=== PATIENT | female | born 1975 | race Caucasian/White ===

== ENCOUNTER 2021-04-14 07:56 | Outpatient (CLI) | payer OTHER, MEDICARE, SELFPAY ==
--- NOTE | 2021-04-14 08:10 | CT_ITS ---
WS: [id number] CT NECK TECHNIQUE: Contrast-enhanced CT of the neck with coronal and sagittal reformatted images. CLINICAL INFORMATION: DYSPHAGIA, OROPHARYNGEAL PHASE, LOCALIZED SWELLING MASS AND COMPARISON: None. DLP: 998.[address] scans at [facility] use at least one of these dose optimization techniques: automat ed exposure control; mA and/or kV adjustment per patient size (includes targeted exams where dose is matched to clinical indication); or iterative reconstruction. FINDINGS: Normal parapharyngeal fat. Normal palatine tonsils. Parotid glands are normal. Small low-at tenuation lesion right submandibular gland appears cystic measuring 3 mm. Submandibular glands are ot herwise normal. Normal posterior nasopharynx. No evidence of supraglottic or glottic mass. Normal tej lecula and piriform sinuses. Normal subglottic airway. A few prominent submandibular and cervical lymph nodes not pathologically enlarged likely reactive. P artially visualized mastoid air cells well aerated. Paranasal sinuses are only partially visualized b ut appear well aerated. Normal posterior fossa. Straightening of the normal cervical lordosis. Anteri or hypertrophic changes C5-C6 and C6-C7. Somewhat atrophic thyroid tissue for patient this age. No visualized dominant mass or lesion. This ca n be further evaluated with ultrasound for better anatomic detail. Recommend correlation with thyroid function studies and hypothyroidism. Noncalcified groundglass nodule right upper lobe measuring 4.4 mm. Recommend 6 month follow-up chest CT. CT/CT neck w con* [id number] IMPRESSION: 1. No evidence of supraglottic or glottic mass. Normal palatine tonsils. 2. Subglottic airway is normal. 3. A few prominent submandibular and cervical lymph nodes not pathologically e nlarged likely reactive. 4. Tiny right submandibular cystic lesion likely benign measuring 3 mm. 5. Somewhat atrophic thyroid tissue for a patient this age. No visualized thyr oid mass. Recommend correlation with laboratory markers. This can be further ev aluated with ultrasound for better anatomic detail if indicated. 6. Hazy groundglass noncalcified nodule right upper lobe measuring 5 mm. Recom mend 6 month follow-up chest CT.
--- NOTE | 2021-04-14 08:10 | FL_ITS ---
WS: [id number] ESOPHAGRAM TECHNIQUE: Double contrast examination was performed with thin and thick barium. Upright and JEREZ imag es were obtained. CLINICAL INFORMATION: DYSPHAGIA, OROPHARYNGEAL PHASE, LOCALIZED SWELLING MASS COMPARISON: None. FINDINGS: Swallowing: No aspiration or penetration. Esophagus: Moderate esophageal dysmotility. Spasm in the upper thoracic esophagus results in delayed transit of the barium tablet which cleared with additional water. This distends better with additiona l barium with mild underlying tapered narrowing. Prominent reflux is visualized to the thoracic inlet on the supine imaging. Reflux esophagitis in the distal esophagus. Gastroesophageal reflux: Moderate to severe reflux. Small esophageal hiatal hernia. Fluoroscopy time: 3.3 minutes. FL/FL barium swallow [id number] IMPRESSION: 1. Moderate esophageal dysmotility with delayed emptying on the upright imagin g. 2. Delayed transit of the barium tablet in the upper esophagus with esophageal spasm. This corresponds to patient's symptoms. This clears with additional ing estion of water. Mild smooth tapered narrowing in this area in the upper thorac ic esophagus. No high-grade stricture. Esophageal lumen is better distended on the supine imaging. Recommend further evaluation with endoscopy. 3. Moderate to severe esophageal reflux to the thoracic inlet on the supine im aging. Small esophageal hiatal hernia.
[2021-04-14] MEDS: iohexol 300 mg/mL 100 mL Btl IV (08:32)
== END 2021-04-14 07:57 | disposition home or self-care (01) ==
PROVIDERS: Visit Provider Otolaryngology
DX: R13.12 Dysphagia, oropharyngeal phase (principal); R22.1 Localized swelling, mass and lump, neck
CPT/HCPCS: 70491; 74220; Q9967

== ENCOUNTER 2021-09-05 12:24 | Emergency (ER) | payer OTHER, MEDICARE, SELFPAY ==
[2021-09-05 12:27] VITALS: BP 148/87; PULSE 57; RESP 20; TEMP 36.9; O2SAT 98; BMI 37.8
--- NOTE | 2021-09-05 12:57 | ECG_ITS ---
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 Measurements Intervals Assumption Rate: 62 P: 56 WV: 142 QRS: 60 QRSD: 88 T: 63 QT: 420 QTc: 430 Interpretive Statements SINUS RHYTHM No previous ECG available for comparison Electronically Signed On 09-06-2021 5:01:42 BRANCH MECHANIC by Irais Lockhart M.D. [id number]
--- NOTE | 2021-09-05 12:57 | XR_ITS ---
WS: [id number] XR chest 1V portable [id number] REASON FOR EXAM: altered mental status FINDINGS: The heart is not enlarged. Moderate tortuosity of the thoracic aorta without aneurysmal dilatation. Calcified granulomatous disease in both hemithoraces. No active pulmonary parenchymal or pleural disease is noted. Moderate degenerative spondylosis in the mid and lower thoracic spine. XR/XR chest 1V portable [id number] IMPRESSION: No acute chest abnormality.
--- NOTE | 2021-09-05 13:07 | W.ED.PSYCHS ---
HPI - Psych General: Chief Complaint: Psychiatric Symptoms Stated Complaint: ANXIETY, PANIC ATTACK, HALLUCINATIONS Time Seen by Provider: 09/05/21 12:33 Source: patient History of Present Illness: HPI Narrative: 46-year-old female presents emergency department chief complaint of anxiety and hyperactivity this been ongoing for quite some time as well as chronic suicidal thoughts. Patient reports she moved to our area roughly 3 years ago from [facility]. Patient reports that she has been previously seen by her primary care doctor is providing her her lithium. She reports she has a known history of bipolar and schizophrenia anxiety and depression. She reports that she has not establish care with a psychiatrist as of yet. The patient reports that she is unable to stop her mind from thinking reports she has chronic hallucinations she has no current plan reports no other associated symptoms besides history of chronic thyroid issues. Patient reports no drug recent alcohol abuse does report smoking marijuana intermittently. Patient does report to be taking her psychiatric medications that do not seem to help however upon secondary questioning she reports she has not been. MD complaint: feels depressed and altered mental status Onset (ago): week(s) (3) Duration: constant and getting worse History of same: Yes Relieving factors: none Exacerbating factors: none Context: recent drug abuse Associated symptoms: Reports auditory hallucinations, depression and suicidal ideation (Chronic for 3 to 4 years.) Treatments prior to arrival: none If self harm: has plan, has acted on plan, intentional overdose and self-inflicted trauma Review of Systems General: Reports: 10 or more systems reviewed and unremarkable except in HPI and below Const: Denies: fever(s), chills, fatigue or malaise Eyes: Denies: change in vision or blurry vision Card: Denies: chest pain or palpitations Resp: Denies: dyspnea or productive cough GI: Denies: abdominal pain, nausea or vomiting : Denies: flank pain Musc: Denies: extremity pain or extremity swelling Skin/Breast: Denies: rash or pruritus Neuro: Reports: confusion, behavioral changes and restless legs; Denies: headache(s) Psych: Reports: anxiety, depression, mood swings, panic attacks, sleeping less, irritability, auditory hallucinations and suicidal ideation (Chronic for 3 to 4 years.) Won/Lymph: Denies: easy bleeding All/Imm: Denies: urticaria, throat swelling or facial swelling FOR[facility] ED PFSH: Medical History Psychiatric care Physical Exam Narrative: EXAM NARRATIVE: Patient on exam appears somewhat anxious however appears in no obvious acute distress. No observations of any obvious hallucinations appreciated on exam. Const: COMMON NORMALS: no acute distress, patient oriented x3 and healthy appearing HENMT: COMMON NORMALS: normocephalic and atraumatic HEAD & SCALP: normocephalic and atraumatic Eye: COMMON NORMALS: Equal, round and reactive pupils present and EOMs intact bilaterally PUPIL: Yes Equal, round and reactive pupils present Neck/C-Spine: COMMON NORMALS: full ROM, supple and no JVD Lymph: LYMPHATIC: no lymphadenopathy noted Chest: COMMONS NORMALS: normal inspection of the chest and normal palpation of entire chest wall Resp: COMMON NORMALS: normal respiratory effort, No retractions and clear to auscultation bilaterally EFFORT & INSPECTION: Yes able to speak in complete sentences and Yes symmetric chest movement AUSCULTATION: clear to auscultation bilaterally Cardio: COMMON NORMALS: no JVD, regular rate and regular rhythm RATE: regular rate RHYTHM: regular rhythm GI: COMMON NORMALS: Normal to inspection, nondistended, normoactive bowel sounds present, Soft to palpation and non-tender INSPECTION: Yes normal to inspection PALPATION: Yes Soft to palpation : COMMON NORMALS: Yes no CVA tenderness BLADDER/KIDNEY EXAM: Yes no CVA tenderness Back/Pelvis: COMMON NORMALS: no CVA tenderness Extremity: COMMON NORMALS: normal to inspection and full ROM Neuro: COMMON NORMALS: patient oriented x3, CN's II-XII intact bilaterally, moves all extremities and no focal motor deficits Psych: COMMON NORMALS: mental status grossly normal, Normal thought process present, cooperative, normal affect and speech normal ATTITUDE: Yes agitated SPEECH: Yes normal speech and Yes excessive THOUGHT PROCESS: Normal thought process present, disorganized and Loose association thought process present THOUGHT CONTENT: Yes Suicidality present (Chronic over years reports nothing new with no recent plan or attempt) Skin: COMMON NORMALS: no rashes or lesions noted GENERAL SKIN EXAM: no rashes or lesions noted Course Vital Signs: Vital signs: Vital Signs Temperature 98.5 F 09/05/21 12:27 Pulse Rate 65 09/05/21 13:43 Respiratory Rate 17 09/05/21 13:43 Blood Pressure 148/87 09/05/21 13:43 Pulse Oximetry 93 09/05/21 13:43 MDM - Psych MDM Narrative: Medical decision making narrative: Due to the patient's significant age and basic mental health screening exam will be obtained as well as DHEA TSH and free T4 in addition lithium level will be obtained and concern for lithium toxicity possibly could be contributing to current symptoms IV fluids were provided we will continue to follow Lab work came back reassuring normal lithium levels no obvious concerns of for toxicity at this time prior to reevaluation nursing staff reported that the patient was wanting to leave prior to reevaluation. Went in to speak to the patient reports that she is just quite manic in which she is wanting to leave instructed the patient we will be providing her with appropriate referral to [facility]. Patient was notified prior to subsequent discharge that she can follow-up there and walk there if when she is there before 4:00 today she can receive the appropriate intake process packet of information in which she should follow-up thereafter at 0 730 the next morning to make an appointment Case management will also be involved which will further follow-up with her in regards to her [facility] eval. Patient was seen leaving the ER department in no obvious acute distress. Lab Data: Labs: Lab Results 09/05/21 09/05/21 09/05/21 12:50 12:50 13:50 WBC 7.4 10^3/uL 10^3/ uL (4.0-10.0) RBC 4.27 10^6/uL 10^6 /uL (4.1-5.3) Hgb 13.8 g/dL g/dL (11.5-15.3) Hct 43.0 % % (37.0-47.0) MCV 100.7 fl H fl (81-99) MCH 32.3 pg pg (28.0-34.0) MCHC 32.1 g/dL g/dL (30.0-36.0) RDW 12.6 % % (12.1-15.1) Plt Count 284 10^3/cmm 10^3 /cmm (130-400) MPV 10.8 fL H fL (7.4-10.4) Neut % (Auto) 51.2 % % Lymph % (Auto) 32.3 % % [place] % (Auto) 7.7 % % Eos % (Auto) 7.4 % % Baso % (Auto) 1.1 % % Neut # (Auto) 3.81 10^3/uL 10^3 /uL (1.8-7.7) Lymph # (Auto) 2.4 10^3/uL 10^3/ uL (0.8-4.8) [place] # (Auto) 0.6 10^3/uL 10^3/ uL (0.2-0.9) Eos # (Auto) 0.6 10^3/uL 10^3/ uL (0.0-0.8) Baso # (Auto) 0.1 10^3/uL 10^3/ uL (0.0-0.1) Nucleated RBC % (a uto) 0 % % Nucleated RBCs # 0.0 /100WBC /100W BC Sodium Potassium Chloride Carbon Dioxide Anion Gap BUN Creatinine GFR Calculation Glucose Calculated Osmolal ity Calcium Total Bilirubin AST ALT Alkaline Phosphata se Total Protein Albumin Globulin TSH Free T4 Urine Color Yellow (Yellow) Urine Appearance Hazy A (CLEAR) Urine pH 6 (5-7) Ur Specific Gravit y 1.010 (1.005-1.030) Urine Protein Neg (Negative) Urine Glucose (UA) Norm (Normal) Urine Ketones Negative (Negative) Urine Blood Neg (Negative) Urine Nitrate Negative (Negative) Urine Bilirubin Neg (Negative) Urine Urobilinogen Norm mg/dL mg/dL (Negative) Ur Leukocyte [place] Negative (Negative) Urine RBC 0-4 /hpf H /hpf (0-2) Urine WBC 0-4 /hpf H /hpf (0-5) Ur Squamous Epith Cells 25-40 /hpf H /hpf (0-5) Amorphous Sediment Not Reportable Urine Bacteria 2+ /hpf H /hpf (NONE) Salicylates Urine Opiates Scre en Negative ng/mL ng /mL (Negative) Acetaminophen Ur Barbiturates Sc reen Negative ng/mL ng /mL (Negative) Ur Phencyclidine S crn Negative ng/mL ng /mL (Negative) Ur Amphetamines Sc reen Negative ng/mL ng /mL (Negative) U Benzodiazepines Scrn Negative ng/mL ng /mL (Negative) [place] Urine Cocaine Scre en Negative ng/mL ng /mL (Negative) U Marijuana (THC) Screen Negative ng/mL ng /mL (Negative) Ethyl Alcohol 09/05/21 09/05/21 13:50 13:50 WBC RBC Hgb Hct MCV MCH MCHC RDW Plt Count MPV Neut % (Auto) Lymph % (Auto) [place] % (Auto) Eos % (Auto) Baso % (Auto) Neut # (Auto) Lymph # (Auto) [place] # (Auto) Eos # (Auto) Baso # (Auto) Nucleated RBC % (a uto) Nucleated RBCs # Sodium 137 mmol/L mmol/L (136-145) Potassium 4.9 mmol/L mmol/L (3.5-5.1) Chloride 102 mmol/L mmol/L (98-107) Carbon Dioxide 24 mmol/L mmol/L (22-29) Anion Gap 15.9 (5-19) BUN 12 mg/dL mg/dL (6-20) Creatinine 1.1 mg/dL H mg/dL (0.5-0.9) GFR Calculation 53.0 mL/min L mL/ min (90-130) Glucose 100 mg/dL mg/dL (65-115) Calculated Osmolal ity 284 mOsm/kg L mOs m/kg (285-295) Calcium 9.3 mg/dL mg/dL (8.5-10.5) Total Bilirubin 0.3 mg/dL mg/dL (0.15-1.2) AST 19 U/L U/L (0-32) ALT < 5 U/L U/L (0-33) Alkaline Phosphata se 85 IU/L IU/L (35-105) Total Protein 7.1 g/dL g/dL (6.6-8.7) Albumin 4.7 g/dL g/dL (3.5-5.2) Globulin 2.4 g/dL g/dL (1.3-4.6) TSH 9.63 uIU/mL H uIU /mL (0.27-4.20) Free T4 1.00 ng/dL ng/dL (0.82-1.77) Urine Color Urine Appearance Urine pH Ur Specific Gravit y Urine Protein Urine Glucose (UA) Urine Ketones Urine Blood Urine Nitrate Urine Bilirubin Urine Urobilinogen Ur Leukocyte [place] Urine RBC Urine WBC Ur Squamous Epith Cells Amorphous Sediment Urine Bacteria Salicylates < 0.3 mg/dL L mg/ dL (3-10) Urine Opiates Scre en Acetaminophen < 5.0 ug/mL L ug/ mL (10-30) Ur Barbiturates Sc reen Ur Phencyclidine S crn Ur Amphetamines Sc reen U Benzodiazepines Scrn [place] 0.9 mmol/L mmol/L (0.6-1.2) Urine Cocaine Scre en U Marijuana (THC) Screen Ethyl Alcohol < 10 mg/dL mg/dL (0-10) Discharge Plan Discharge Clinical Impression: Chronic schizophrenia, Depression, Anxiety, Bipolar disorder Condition: Stable Prescriptions: No Action quetiapine 150 mg tablet extended release 24 hr 150 mg PO BEDTIME RF: 0 lithium carbonate 600 mg capsule 600 mg PO BEDTIME RF: 0 amitriptyline 25 mg tablet 25 mg PO BEDTIME RF: 0 ibuprofen 800 mg tablet 800 mg PO TID PRN (Reason: Pain) RF: 0 propranolol 10 mg tablet 10 mg PO BID RF: 0 sertraline 100 mg tablet 100 mg PO QAM RF: 0 aspirin 325 mg Tablet 325 mg PO Q4H PRN (Reason: Headache) RF: 0 omeprazole 20 mg capsule,delayed release(DR/EC) 20 mg PO QAM RF: 0 vitamin E 400 unit Capsule 400 unit PO DAILY RF: 0 levothyroxine 137 mcg tablet 137 mcg PO QAM RF: 0 Discharge Orders: Discharge ED (Routine); Ordered 09/05/21 Ordered By: Christian Wilder Activity Restrictions/Additional Instructions: You need to follow-up with [facility] on [address] you can walk there from our facility which is if you get there before 4 PM they will provide you additional information and packet to get you plugged into their system they can also mail the information to you it is advised for tomorrow at least at 0730 for you to follow-up there for a prompt appointment. Case management has been contacted up on your behalf which we will follow-up with you in regards to your [facility] evaluation. If any of your symptoms persist or worse please return the ER immediately for further evaluation management. Coding Level of Care Code ED Skilled Nursing Case Manager for Enzo Mahajan Exam Comprehensive
[2021-09-05 13:40] LABS: Add Urine Microscopic? YES; Bilirubin Urine Neg (Negative); Blood Urine Neg (Negative); Glucose Urine UA Norm (Normal); Ketones Urine Negative (Negative); Leukocyte Esterase Urine Negative (Negative); Nitrate Urine Negative (Negative); Protein Urine Neg (Negative); Urine Appearance Hazy (CLEAR); Urine Color Yellow (Yellow); Urobilinogen Urine Norm (Negative); pH Urine 6 (5-7)
[2021-09-05 13:42] LABS: Amphetamines Screen Urine Negative (Negative); Barbiturates Screen Urine Negative (Negative); Benzodiazepines Screen Urine Negative (Negative); Cocaine Screen Urine Negative (Negative); Opiate Screen Urine Negative (Negative); PCP Screen Urine Negative (Negative); THC Screen Urine Negative (Negative)
[2021-09-05 13:43] VITALS: BP 148/87; PULSE 65; RESP 17; O2SAT 93
[2021-09-05 13:54] LABS: RBC Urine 0-4 /hpf (0-2); WBC Urine 0-4 /hpf (0-5)
[2021-09-05 13:55] LABS: Bacteria Urine 2+ /hpf; Squamous Epithelial Cell Urine 25-40 /hpf (0-5)
[2021-09-05 13:56] LABS: Add Urine Culture? No
[2021-09-05 13:59] LABS: Basophils # 0.1 10^3/uL (0.0-0.1); Basophils % 1.1 %; Eosinophils # 0.6 10^3/uL (0.0-0.8); Eosinophils % 7.4 %; Hemoglobin 13.8 g/dL (11.5-15.3); Lymphocytes # 2.4 10^3/uL (0.8-4.8); Lymphocytes % 32.3 %; Mean Corpuscular HGB Conc 32.1 g/dL (30.0-36.0); Mean Corpuscular Hemoglobin 32.3 pg (28.0-34.0); Mean Corpuscular Volume 100.7 fl (81-99); Mean Platelet Volume 10.8 fL (7.4-10.4); Monocytes # 0.6 10^3/uL (0.2-0.9); Monocytes % 7.7 %; Neutrophils # 3.81 10^3/uL (1.8-7.7); Neutrophils % 51.2 %; Nucleated Red Blood Cells % 0 %; Platelet Count 284 10^3/cmm (130-400); Red Blood Count 4.27 10^6/uL (4.1-5.3); Red Cell Distribution Width 12.6 % (12.1-15.1); White Blood Count 7.4 10^3/uL (4.0-10.0)
[2021-09-05 14:22] LABS: Lithium 0.9 mmol/L (0.6-1.2)
[2021-09-05 14:25] LABS: Alanine Aminotransferase < 5 U/L (0-33); Albumin Level 4.7 g/dL (3.5-5.2); Alkaline Phosphatase 85 IU/L (35-105); Anion Gap 15.9 (5-19); Aspartate Amino Transferase 19 U/L (0-32); Blood Urea Nitrogen 12 mg/dL (6-20); Calcium 9.3 mg/dL (8.5-10.5); Carbon Dioxide 24 mmol/L (22-29); Chloride 102 mmol/L (98-107); Globulin 2.4 g/dL (1.3-4.6); Glucose 100 mg/dL (65-115); Osmolality Calculated 284 mOsm/kg (285-295); Potassium 4.9 mmol/L (3.5-5.1); Sodium 137 mmol/L (136-145); Thyroid Stimulating Hormone 9.63 uIU/mL (0.27-4.20); Total Bilirubin 0.3 mg/dL (0.15-1.2); Total Protein 7.1 g/dL (6.6-8.7)
[2021-09-05 14:26] LABS: Acetaminophen < 5.0 ug/mL (10-30); Alcohol Level < 10 mg/dL (0-10); Salicylate < 0.3 mg/dL (3-10)
[2021-09-05 15:33] VITALS: PULSE 84; RESP 18; O2SAT 95
--- NOTE | 2021-09-12 12:16 | DCPLANNER ---
manager cargo had message to speak with patient about services at [facility]. manager cargo spoke with patient, she stated that she has a follow up appointment scheduled with [facility] in September. Patient also stated that she has an appointment with her primary care physician.
== END 2021-09-05 15:35 ==
PROVIDERS: Emergency Provider Emergency Medicine
DX: F41.8 Other specified anxiety disorders (principal); F20.9 Schizophrenia, unspecified; F31.9 Bipolar disorder, unspecified
CPT/HCPCS: 36415; 71045; 80053; 80178; 80306; 80307; 81001; 84439; 84443; 85025; 93005; 99283

== ENCOUNTER → 2021-12-13 12:47 | Outpatient (BNVA) | payer MEDICARE, MEDICAID, SELFPAY | PROVIDERS: Visit Provider Psychiatry & Neurology Psychiatry | DX: F41.1 Generalized anxiety disorder (principal); F33.2 Major depressive disorder, recurrent severe without psychotic features; F43.12 Post-traumatic stress disorder, chronic; F12.20 Cannabis dependence, uncomplicated | CPT/HCPCS: 99214 ==

== ENCOUNTER → 2022-01-10 12:40 | Outpatient (BNVA) | payer MEDICARE, MEDICAID, SELFPAY | PROVIDERS: Visit Provider Psychiatry & Neurology Psychiatry | DX: F41.1 Generalized anxiety disorder (principal); F33.2 Major depressive disorder, recurrent severe without psychotic features; F43.12 Post-traumatic stress disorder, chronic; F12.20 Cannabis dependence, uncomplicated | CPT/HCPCS: 99213 ==

== ENCOUNTER → 2022-02-21 15:35 | Outpatient (BNVA) | payer MEDICARE, OTHER, SELFPAY | PROVIDERS: Visit Provider Psychiatry & Neurology Psychiatry | DX: F41.1 Generalized anxiety disorder (principal); F33.2 Major depressive disorder, recurrent severe without psychotic features; F43.12 Post-traumatic stress disorder, chronic; F12.20 Cannabis dependence, uncomplicated | CPT/HCPCS: 99214 ==

== ENCOUNTER → 2023-12-04 12:31 | Outpatient (BNVA) | payer MEDICARE, SELFPAY | PROVIDERS: Visit Provider Nurse Practitioner | DX: Z20.2 Contact with and (suspected) exposure to infections with a predominantly sexual mode of transmission (principal) | CPT/HCPCS: 86803; 87491; 87591; 87806 ==

== ENCOUNTER → 2023-12-06 12:05 | Outpatient (BNVA) | payer MEDICARE, SELFPAY | PROVIDERS: Visit Provider Family Medicine Adult Medicine | DX: E03.9 Hypothyroidism, unspecified (principal); N18.31 Chronic kidney disease, stage 3a; R63.4 Abnormal weight loss | CPT/HCPCS: 80053; 83036; 84443; 85025 ==